=== PATIENT | male | born 1995 | race Caucasian/White ===

== ENCOUNTER 2016-09-18 21:02 | Emergency (ER) | payer OTHER ==
[~2016-09-18] VITALS: Ht 177.8 cm; Wt 104.3 kg
[2016-09-18] MEDS ORDERED: NAPR550T PO (21:27)
--- NOTE | 2016-09-18 21:37 | ED Psychosocial ---
General Chief Complaint: Psych/Social Disorder Stated Complaint: ANXIETY Nursing Triage Note: PT C/O SEVERE ANXIETY WITH HYPERVENTILATION THIS EVENING. ALSO C/O CHEST PALPITATIONS. Source: patient Exam Limitations: no limitations History of Present Illness Time seen by provider: 21:37 Initial Comments 21-year-old male patient presents to the emergency department complains of anxiety and hyperventilation this evening. Patient reports palpitations which have resolved completely. States he has been under increased stress at home and at school. Patient is here as a student at [employer] from [place], [place]. Parents are on their way to [place] from [place]. Girlfriend is at the bedside. Patient states last summer his brother was killed in a MVA. Denies seeing a counselor or therapist for this. Patient reports having increased frequency of anxiety attacks. Patient is to graduate this October and is stressed about schoolwork. All family resides in [place]. Patient is planning on moving back home at the end of the semester. Denies talking to friends or family about his brother and stress. Plays sports at [employer], but has not talked to his coaches or fellow athletes. Denies suicidal or homicidal ideation. Timing/Duration: other (onset last summer/fall. progressively getting worse wtih more frequent episodes. ) Associated Symptoms: anxiety, impaired concentration Allergies and Home Medications Allergies Coded Allergies: No Known Drug Allergies (Unverified , 09/18/16) Home Medications Hydroxyzine Pamoate 25 Mg Capsule, 25 MG PO Q6H PRN for ANXIETY, #30 Ref 0 Prescribed by: JIMBO VILLALBA on 09/18/16 2342 Naproxen Sodium 550 Mg Tablet, 550 MG PO BID, (Reported) Constitutional: see HPI, No diaphoresis, dizziness, No fever, No malaise, No weakness EENTM: no symptoms reported Respiratory: No cough, short of breath (during episodes patient becomes SOA. resolved at this time. ) Cardiovascular: No chest pain, palpitations, No syncope, other (lightheaded) Gastrointestinal: no symptoms reported Genitourinary: no symptoms reported Musculoskeletal: no symptoms reported Skin: no symptoms reported Psychiatric/Neurological: Anxiety, Depressed, Denies Headache, Denies Numbness , Denies Paresthesia, Denies Seizure, Tingling (fingers and toes. ), Denies Weakness All Other Systems Reviewed Negative Unless Noted: Yes (Negative excepted noted.) Past Wmwzwpd-Yohtrf-Fwlavr Hx Patient Social History Alcohol Use: Occasionally Uses Recreational Drug Use: No Smoking Status: Never a Smoker Recent Foreign Travel: No Contact w/Someone Who Travel: No Recent Infectious Disease Expo: No Recent Hopitalizations: No Seasonal Allergies Seasonal Allergies: No Surgeries HX Surgeries: Yes (LEFT WRIST, LEFT FOOT) Surgeries: Orthopedic Respiratory Hx Respiratory Disorders: No Cardiovascular Hx Cardiac Disorders: No Neurological Hx Neurological Disorders: No Genitourinary Hx Genitourinary Disorders: No Gastrointestinal Hx Gastrointestinal Disorders: No Musculoskeletal Hx Musculoskeletal Disorders: No Psychosocial Hx Psychiatric Problems: No (denies diagnosis of psychiatric disorders.) Reviewed Nursing Assessment Reviewed/Agree w Nursing PMH: Yes Family Medical History Significant Family History: No Pertinent Family Hx Physical Exam Vital Signs Capillary Refill : Less Than 3 Seconds General Appearance: WD/WN, no apparent distress HEENT: PERRL/EOMI, pharynx normal Neck: supple, normal inspection Respiratory: lungs clear, normal breath sounds, no respiratory distress Cardiovascular: normal peripheral pulses, regular rate, rhythm, no edema, no gallop, no murmur Gastrointestinal: non tender, soft, No distended Extremities: normal inspection, normal capillary refill Neurologic/Psychiatric: behavioral health worker II-XII nml as tested, no motor/sensory deficits, alert, oriented x 3, depressed affect, other (mildly anxious. ) Appearance/Memory: appropriate appearance, appropriate insight, neat, no memory impairment Behavior/Eye Contact: cooperative, avoids eye contact, decreased rate of speech Thoughts/Hallucinations: normal thought pattern, no apparent hallucination Skin: normal color, warm/dry Progress/Results/Core Measures Results/Orders Lab Results My Orders Vital Signs/I&O Blood Pressure Mean: 108 ECG Initial ECG Impression Date: Sep 18, 2016 Initial ECG Impression Time: 22:17 Initial ECG Rate: 50 Initial ECG Rhythm: Normal Sinus Initial ECG Intervals: Normal Initial ECG Impression: Normal Initial ECG Comparisson: No Previous ECG Available Comment sinus rhythm. no acute findings. ECG reviewed by Dr. Louis. Departure Communication Progress Notes Patient seen and evaluated. States he already feels much better by talking to this examiner. states he has not talked to anyone about his brother's since the accident. patient is agreeable to labs and ECG. 2049 parents at bedside. parents are concerned about patient's well-being. states they would like patient to see a counselor as an outpatient. Patient is agreeable to this. Patient given names and contact information for counselors and psychologists specializing in grief. Patient advised to return immediately if any thoughts of harming himself or others. Also instructed to contact 911, the Police Department, or the crisis line if any thoughts of harming himself or others. All return precautions were discussed with the patient and family as described in the discharge instructions of this report. All voiced understanding and agree with the treatment plan. Impression Impression: Primary Impression: Anxiety Additional Impression: Stress Disposition: HOME, SELF-CARE Condition: Improved Departure-Patient Inst. Referrals: NO,LOCAL PHYSICIAN (PCP/Family) Primary Care Physician Patient Instructions: Anxiety, Adult (DC), Stress Add. Discharge Instructions: All discharge instructions reviewed with patient and/or family. Voiced understanding. Medications as instructed. Rest. Follow-up with your primary care physician for a recheck as an outpatient. Call for appointment time. Consider seeing a grief and bereavement counselor as an outpatient. Return immediately to the emergency department for worsened symptoms, thoughts of harming yourself, thoughts of harming others, or any other concerns. If thoughts of harming yourself or others contact the crisis line ([phone]), Police Department, 911, or return immediately to the emergency department. [facility] (Zita Maradiaga, Rossana Ochoa) [phone] [address] [facility] [phone] Scripts Hydroxyzine Pamoate (Vistaril) 25 Mg Capsule 25 MG PO Q6H Y for ANXIETY, #30 CAP 0 Refills Prov: JIMBO VILLALBA 09/18/16 JIMBO VILLALBA Sep 18, 2016 21:37
[2016-09-18 22:27] LABS: BASOPHILS % (AUTO) 0 % (0-10); EOSINOPHILS # (AUTO) 0.1 10^3/uL (0.0-0.3); EOSINOPHILS % (AUTO) 1 % (0-10); LYMPHOCYTES # (AUTO) 1.7 X 10^3 (1.0-4.0); LYMPHOCYTES % (AUTO) 19 % (12-44); MEAN CORPUSCULAR HEMOGLOBIN 28 PG (25-34); MEAN CORPUSCULAR HGB CONC 36 G/DL (32-36); MEAN CORPUSCULAR VOLUME 79 FL (80-99); MEAN PLATELET VOLUME 10.1 FL (7.4-10.4); MONOCYTES # (AUTO) 0.7 X 10^3 (0.0-1.0); MONOCYTES % (AUTO) 8 % (0-12); NEUTROPHILS # (AUTO) 6.4 X 10^3 (1.8-7.8); NEUTROPHILS % (AUTO) 72 % (42-75); PLATELET COUNT 244 10^3/uL (130-400); RED BLOOD COUNT 5.61 10^6/uL (4.35-5.85); RED CELL DISTRIBUTION WIDTH 12.3 % (10.0-14.5); WHITE BLOOD COUNT 8.9 10^3/uL (4.3-11.0)
[2016-09-18 22:32] LABS: BILIRUBIN,URINE NEGATIVE (NEGATIVE); KETONES,URINE NEGATIVE (NEGATIVE); LEUKOCYTE ESTERASE ,URINE NEGATIVE (NEGATIVE); NITRITE,URINE NEGATIVE (NEGATIVE); PH,URINE 8 (5-9); PROTEIN,URINE NEGATIVE (NEGATIVE); UROBILINOGEN,URINE NORMAL (NORMAL)
[2016-09-18 22:40] LABS: SQUAMOUS EPITHELIAL CELL,UR RARE /HPF
[2016-09-18 22:58] LABS: ALANINE AMINOTRANSFERASE 32 U/L (0-55); ALBUMIN 4.6 G/DL (3.2-4.5); ANION GAP 10 MMOL/L (5-14); ASPARTATE AMINO TRANSFERASE 26 U/L (5-34); BILIRUBIN,TOTAL 0.4 MG/DL (0.1-1.0); BLOOD UREA NITROGEN 13 MG/DL (7-18); BUN/CREATININE RATIO 11; CALCIUM 9.9 MG/DL (8.5-10.1); CARBON DIOXIDE 25 MMOL/L (21-32); CHLORIDE 107 MMOL/L (98-107); CREATININE SERUM 1.16 MG/DL (0.60-1.30); GFR ESTIMATED > 60; GLUCOSE 84 MG/DL (70-105); POTASSIUM 3.9 MMOL/L (3.6-5.0); SALICYLATE < 5.0 MG/DL (5.0-20.0); SODIUM 142 MMOL/L (135-145); TOTAL PROTEIN 7.2 G/DL (6.4-8.2)
[2016-09-18 22:59] LABS: ACETAMINOPHEN < 10 UG/ML (10-30); ALCOHOL < 10 MG/DL (<10)
[2016-09-18] MEDS ORDERED: HYDR25CA PO (23:42)
[2016-09-18 23:58] VITALS: BP 134/84
--- OUTSIDE RECORDS SUMMARY | 2016-10-22 07:04 | XMS REPORT | Continuity of Care Document ---
Author Author [facility] Organization [facility] Address Unknown Phone Unavailable Care Team Providers Care [employer] Server Name Role Phone No Pcp, Na PCP Unavailable Source Comments Some departments are not documenting in the electronic medical record. If you do not see the information that you expected, contact Release of Information in the Health Information Management department at [phone] for further assistance in locating additional records.[facility] Active Allergies and Adverse Reactions No Known Allergies Current Medications No known medications Active Problems Problem Noted Date Superior glenoid labrum lesion of right shoulder 10/25/2015 Social History Tobacco Use Types Packs/Day Years Used Date Never Smoker Smokeless Tobacco: Never Used Last Filed Vital Signs Vital Sign Reading Time Taken Blood Pressure 147/63 10/25/2015 9:06 AM CDT Pulse 78 10/25/2015 9:06 AM CDT Temperature - - Respiratory Rate 15 10/25/2015 9:06 AM CDT Height 1.778 m (5' 10") 10/25/2015 9:06 AM CDT Weight 97.523 kg (215 lb) 10/25/2015 9:06 AM CDT Body Mass Index 30.85 10/25/2015 9:06 AM CDT Oxygen Saturation 100% 10/25/2015 9:06 AM CDT Plan of Care Health Maintenance Due Date Last Done Comments Physical (Comprehensive) 2002 Exam Hpv Vaccines (#1) 2006 Pertussis Vaccine 2006 Tetanus Vaccine 01/14/2012 Influenza Vaccine 02/16/2017 Results from Last 3 Months Not on file
--- OUTSIDE RECORDS SUMMARY | 2016-10-22 07:04 | XMS REPORT | Continuity of Care Document ---
Author Author [facility] Organization [facility] Address Unknown Phone Unavailable Allergies Active Description Code Type Severity Reaction Onset Reported/Identified Relationship to Patient Clinical Status Yes No Allergy Information Available [id number] Drug Allergy Unknown N/A 10/05/2015 Yes No Known Drug Allergies [id number] Drug Allergy Unknown N/ A 09/18/2016 Medications Problems Date Dx Coded Attending Type Code Diagnosis Diagnosed By 10/06/2015 ANJU MCCORMICK, LADONNA Nazario Ot S43.431A SUPERIOR GLENOID LABRUM LESION OF RIGHT 10/20/2015 LADONNA RENE MD, Ot S43.431A SUPERIOR GLENOID LABRUM LESION OF RIGHT 03/07/2016 LADONNA RENE MD, Ot S43.431A SUPERIOR GLENOID LABRUM LESION OF RIGHT 09/18/2016 JIMBO BOLES Ot F41.9 ANXIETY DISORDER, UNSPECIFIED 09/19/2016 LADONNA RENE MD, Ot S43.431A SUPERIOR GLENOID LABRUM LESION OF RIGHT 09/20/2016 JIMBO BOLES Ot F41.9 ANXIETY DISORDER, UNSPECIFIED Procedures Results Test Result Range Complete blood count (CBC) with automated white blood cell (WBC) differential - 09/18/16 22:20 Blood leukocytes automated count (number/volume) 8.9 10*3/ uL 4.3-11.0 Blood erythrocytes automated count (number/volume) 5.61 10*6 /uL 4.35-5.85 Venous blood hemoglobin measurement (mass/volume) 15.8 g/dL 13.3-17.7 Blood hematocrit (volume fraction) 44 % 40-54 Automated erythrocyte mean corpuscular volume 79 [foz_us] 80-99 Automated erythrocyte mean corpuscular hemoglobin (mass per erythrocyte) 28 pg 25-34 Automated erythrocyte mean corpuscular hemoglobin concentration measurement ( mass/volume) 36 g/dL 32-36 Automated erythrocyte distribution width ratio 12.3 % 10.0-14.5 Automated blood platelet count (count/volume) 244 10*3/uL 130-400 Automated blood platelet mean volume measurement 10.1 [foz_ us] 7.4-10.4 Automated blood neutrophils/100 leukocytes 72 % 42-75 Automated blood lymphocytes/100 leukocytes 19 % 12-44 Blood monocytes/100 leukocytes 8 % 0-12 Automated blood eosinophils/100 leukocytes 1 % 0-10 Automated blood basophils/100 leukocytes 0 % 0-10 Blood neutrophils automated count (number/volume) 6.4 10*3 1.8-7.8 Blood lymphocytes automated count (number/volume) 1.7 10*3 1.0-4.0 Blood monocytes automated count (number/volume) 0.7 10*3 0.0-1.0 Automated eosinophil count 0.1 10*3/uL 0.0-0.3 Automated blood basophil count (count/volume) 0.0 10*3/uL 0.0-0.1 Comprehensive metabolic panel - 09/18/16 22:20 Serum or plasma sodium measurement (moles/volume) 142 mmol/ L 135-145 Serum or plasma potassium measurement (moles/volume) 3.9 mmol/L 3.6-5.0 Serum or plasma chloride measurement (moles/volume) 107 mmol /L 98-107 Carbon dioxide 25 mmol/L 21-32 Serum or plasma anion gap determination (moles/volume) 10 mmol/L 5-14 Serum or plasma urea nitrogen measurement (mass/volume) 13 mg/dL 7-18 Serum or plasma creatinine measurement (mass/volume) 1.16 mg /dL 0.60-1.30 Serum or plasma urea nitrogen/creatinine mass ratio 11 NRG Serum or plasma creatinine measurement with calculation of estimated glomerular filtration rate > NRG Serum or plasma glucose measurement (mass/volume) 84 mg/dL 70-105 Serum or plasma calcium measurement (mass/volume) 9.9 mg/dL 8.5-10.1 Serum or plasma total bilirubin measurement (mass/volume) 0.4 mg/dL 0.1-1.0 Serum or plasma alkaline phosphatase measurement (enzymatic activity/volume) 92 U/L 40-136 Serum or plasma aspartate aminotransferase measurement (enzymatic activity/ volume) 26 U/L 5-34 Serum or plasma alanine aminotransferase measurement (enzymatic activity/volume ) 32 U/L 0-55 Serum or plasma protein measurement (mass/volume) 7.2 g/dL 6.4-8.2 Serum or plasma albumin measurement (mass/volume) 4.6 g/dL 3.2-4.5 Serum or plasma salicylates measurement (mass/volume) - 09/18/16 22:20 Serum or plasma salicylates measurement (mass/volume) < mg/ dL 5.0-20.0 Serum or plasma acetaminophen measurement (mass/volume) - 09/18/16 22:20 Serum or plasma acetaminophen measurement (mass/volume) < ug /mL 10-30 Serum or plasma ethanol measurement (mass/volume) - 09/18/16 22:20 Serum or plasma ethanol measurement (mass/volume) < mg/dL <10 Serum or plasma thyrotropin measurement by detection limit <=0.05 miu/l (units/ volume) - 09/18/16 22:20 Serum or plasma thyrotropin measurement by detection limit <=0.05 miu/l (units/ volume) 1.15 u[iU]/mL 0.35-4.94 Complete urinalysis with reflex to culture - 09/18/16 22:24 Urine color determination YELLOW NRG Urine clarity determination CLEAR NRG Urine pH measurement by test strip 8 5- 9 Specific gravity of urine by test strip 1.015 1.016-1.022 Urine protein assay by test strip, semi-quantitative NEGATIVE NEGATIVE Urine glucose detection by automated test strip NEGATIVE NEGATIVE Erythrocytes detection in urine sediment by light microscopy NEGATIVE NEGATIVE Urine ketones detection by automated test strip NEGATIVE NEGATIVE Urine nitrite detection by test strip NEGATIVE NEGATIVE Urine total bilirubin detection by test strip NEGATIVE NEGATIVE Urine urobilinogen measurement by automated test strip (mass/volume) NORMAL NORMAL Urine leukocyte esterase detection by dipstick NEGATIVE NEGATIVE Automated urine sediment erythrocyte count by microscopy (number/high power field) NONE NRG Automated urine sediment leukocyte count by microscopy (number/high power field ) NONE NRG Bacteria detection in urine sediment by light microscopy NONE NRG Squamous epithelial cells detection in urine sediment by light microscopy RARE NRG Crystals detection in urine sediment by light microscopy NONE NRG Casts detection in urine sediment by light microscopy NONE NRG Mucus detection in urine sediment by light microscopy NEGATIVE NRG Complete urinalysis with reflex to culture NO NRG Urine drug screening test - 09/18/16 22:24 Urine phencyclidine detection by screening method NEGATIVE NEGATIVE Urine benzodiazepines detection by screening method NEGATIVE NEGATIVE Urine cocaine detection NEGATIVE NEGATIVE Urine amphetamines detection by screening method NEGATIVE NEGATIVE Urine methamphetamine detection by screening method NEGATIVE NEGATIVE Urine cannabinoids detection by screening method NEGATIVE NEGATIVE Urine opiates detection by screening method NEGATIVE NEGATIVE Urine barbiturates detection NEGATIVE NEGATIVE Screening urine tricyclic antidepressants detection NEGATIVE NEGATIVE Urine methadone detection by screening method NEGATIVE NEGATIVE Urine oxycodone detection NEGATIVE NEGATIVE Urine propoxyphene detection NEGATIVE NEGATIVE Encounters ACCT No. Visit Date/Time Discharge Status Pt. Type Provider Facility Loc./Unit Complaint [id number] 09/18/2016 21:03:00 2016 23:55:00 DIS Emergency DEEJAY MADRID, JIMBO Muse [facility] ER ANXIETY [id number] 10/05/2015 09:05:00 ACT Outpatient ANJU MCCORMICK, LADONNA Nazario [facility] RAD RIGHT SHOULDER SLAP LESION
== END 2016-09-18 23:55 | disposition home or self-care (01) ==
LOC: EDUNIT# 21:02 → ER 21:03
DX: F41.9 Anxiety disorder, unspecified (principal)
CPT/HCPCS: 36415; 80053; 80306; 80320; 80329; 81000; 84443; 85025; 93005